=== PATIENT | female | born 1990 | race Caucasian/White ===

== ENCOUNTER 2024-06-21 00:29 | Emergency (ER) | payer SELFPAY ==
[2024-06-21 02:19] LABS: BASOPHILS ABSOLUTE AUTO 0.04 K/uL (0.00-0.20); BASOPHILS PERCENT AUTO 0.5 % (0.0-1.0); EOSINOPHILS PERCENT AUTO 1.3 % (0.0-6.0); HEMATOCRIT 29.9 % (37.0-47.0); HEMOGLOBIN 10.9 g/dL (12.0-16.0); IMMATURE GRAN ABSOLUTE AUTO 0.15 K/uL (0.00-0.05); IMMATURE GRAN PERCENT AUTO 1.9 % (0.0-0.4); LYMPHOCYTES PERCENT AUTO 19.3 % (24.0-44.0); MEAN CORPUSCULAR HEMOGLOBIN 35.7 pg (28.0-32.0); MEAN CORPUSCULAR HGB CONC 36.5 g/dL (32.0-36.0); MONOCYTES ABSOLUTE AUTO 0.56 K/uL (0.00-0.80); MONOCYTES PERCENT AUTO 7.2 % (0.0-8.0); NEUTROPHILS ABSOLUTE AUTO 5.42 K/uL (1.80-7.70); NEUTROPHILS PERCENT AUTO 69.8 % (41.0-71.0); PLATELET COUNT,PLT 240 K/uL (150-400); RED BLOOD CELL COUNT 3.05 M/uL (4.10-5.30); WHITE BLOOD CELL COUNT,WBC 7.77 K/uL (3.9-11.3)
[2024-06-21 02:34] LABS: INR 1.12 (0.86-1.11)
[2024-06-21 02:45] LABS: D-DIMER QUANTITATIVE 1.05 mg/L FEU (0.00-0.50); PTT,PARTIAL THROMBOPLSTIN TIME 24.8 SEC (23.9-30.7)
[2024-06-21 02:48] LABS: A/G RATIO 0.9 (0.9-1.6); ALBUMIN 2.8 g/dL (3.4-5.0); BILIRUBIN TOTAL 1.2 mg/dL (0.2-1.0); CALCIUM 8.3 mg/dL (8.5-10.1); MAGNESIUM 1.7 mg/dL (1.8-2.4); POTASSIUM,K 3.6 mmol/L (3.5-5.1); PROTEIN TOTAL,TP 5.9 g/dL (6.4-8.2)
[2024-06-21 02:59] LABS: APPEARANCE,URINE CLEAR; BILIRUBIN,URINE NEGATIVE (NEGATIVE); COLOR,URINE YELLOW; GLUCOSE,URINE NEGATIVE (NEGATIVE); KETONES,URINE NEGATIVE (NEGATIVE); LEUKOCYTE ESTERASE,URINE SMALL (NEGATIVE); NITRITE,URINE NEGATIVE (NEGATIVE); OCCULT BLOOD,URINE NEGATIVE (NEGATIVE); PROTEIN,URINE NEGATIVE (NEGATIVE)
[2024-06-21 03:05] LABS: BACTERIA,URINE FEW (NEGATIVE); MUCUS,URINE LIGHT (NONE-MOD); RBC,URINE 0-1 (0-2/HPF); SQUAMOUS EPITHELIAL CELLS,UR MODERATE
[2024-06-21 03:07] LABS: CARBON DIOXIDE,CO2 32.5 mmol/L (21.0-32.0); CREATININE 0.6 mg/dL (0.6-1.0); EST CRCL DRUG DOSING (CG) 115.16 mL/min
[2024-06-21] MEDS: Iopamidol 755 MG/ML 500 ML Multipack Bottle IVPUSH STA (03:08)
== END 2024-06-21 05:24 | disposition left against medical advice (07) ==
LOC: MW.ED 00:29
DX: K70.11 Alcoholic hepatitis with ascites (principal); Z90.49 Acquired absence of other specified parts of digestive tract
CPT/HCPCS: 36415; 71275; 74177; 80053; 80307; 81001; 83690; 83735; 83880; 84703; 85025; 85379; 85610; 85730; 99284; Q9967